=== PATIENT | female | born 1990 | race Two or more races ===

== ENCOUNTER 2022-05-07 13:32 | Outpatient (CLI) | payer OTHER ==
[2022-05-07] MEDS ORDERED: PRENATAL TABLE1 EAC1 PO (22:47)
== END 2022-05-07 16:00 | disposition home or self-care (01) ==
LOC: NST 13:32
PROVIDERS: ATTEND Obstetrics & Gynecology Gynecology
DX: Z34.83 Encounter for supervision of other normal pregnancy, third trimester (principal)

== ENCOUNTER 2022-05-07 19:05 | Inpatient (IN) | payer OTHER ==
[~2022-05-07] VITALS: Ht 180.3 cm; Wt 87.5 kg
[2022-05-07] MEDS ORDERED: PRENATAL TABLE1 EAC1 PO (22:47)
== END 2022-05-09 14:03 | disposition home or self-care (01) | DRG 807 ==
LOC: LDR 19:05 → OB/GYN 19:05
PROVIDERS: ADMIT Obstetrics & Gynecology Maternal & Fetal Medicine; ATTEND Obstetrics & Gynecology Maternal & Fetal Medicine
PROC: 10D07Z6 Extraction of Products of Conception, Vacuum, Via Natural or Artificial Opening (ICD-10-PCS; principal; 2022-05-07)
PROC: 0KQM0ZZ Repair Perineum Muscle, Open Approach (ICD-10-PCS; 2022-05-07)
PROC: 0W8NXZZ Division of Female Perineum, External Approach (ICD-10-PCS; 2022-05-07)
PROC: 4A1HXCZ Monitoring of Products of Conception, Cardiac Rate, External Approach (ICD-10-PCS; 2022-05-07)
DX: O66.5 Attempted application of vacuum extractor and forceps (principal); Z37.0 Single live birth; O70.1 Second degree perineal laceration during delivery; O99.824 Streptococcus B carrier state complicating childbirth; Z3A.37 37 weeks gestation of pregnancy; Z20.822 Contact with and (suspected) exposure to COVID-19